=== PATIENT | male | born 1970 | race Caucasian/White ===

== ENCOUNTER 2025-05-12 00:16 | Day surgery (SDC) | payer MEDICARE, MEDICAID, SELFPAY ==
[2025-05-01 13:43] VITALS: BMI 28.6
--- NOTE | 2025-05-05 12:11 | SUR.PREOP ---
[facility] has started construction of its new state of the art ER which will open Spring 2026. With this, we anticipate parking may be a challenge for some our surgical patients and families. Parking spaces are limited but are available for all Surgical, obstetrics, and ER patients sharing this lot. If you arrive and find you are having a hard time finding a parking space, please note that we understand the challenges, please drive around the hospital and park near Hospital Entrance 1. When you enter this entrance, you can ask a volunteer to direct or take you back to the surgical waiting area to check in. We appreciate everyone?s understanding of these expected challenges while we build for your future. Report to the Outpatient Waiting Room, entrance under the green pavilion located off [address], at time __7AM on date _05/12/25_. Planned Procedure Time: __9AM___.? Time changes happen often and if your time is changed the preop area will call you the afternoon before. - You and your visitor will be asked to self-screen and do not enter if you have any COVID symptoms. Please call surgeon if you need to reschedule. - A mask is optional within the hospital at this time. Patients may have clear liquids (water, carbonated beverages, clear teas, apple juice) until 3 hours prior to surgery with a maximum of 20 ounces. - No food from midnight until time of surgery and no smoking, or chewing tobacco (or any form of nicotine). No chewing gum, candy or mints. Take only the following medications with a SIP of water on the morning of surgery: _bupropion, duloxetine, gabapentin, and (albuterol if needed) DO NOT STOP ANY OF YOUR OTHER PRESCRIPTION MEDICATIONS PRIOR TO SURGERY EXCEPT THE FOLLOWING Hold all vitamins and supplements for 3 days per anesthesiologist. Medications to discontinue per physician ___None___ Date to take last dose____N/a Please no make-up, nail bengali, hairspray, perfume, deodorant, or body powder the day of surgery.? No jewelry (including any body piercings) or valuables the day of surgery, leave them at home.? Please take a shower or bath the night before, or the morning of, surgery with an antibacterial soap.? Wear comfortable, loose fitting clothing.? - Jewelry must be removed prior to entering the operating room.? Rings and piercings that are not removed may be cut off. - The hospital will not accept responsibility for valuables.? - Please leave all valuables, including medications, at home the day of surgery. If you are going home after surgery, a licensed newspaper delivery driver must drive you home.? - NO public transportation without another adult if you receive anesthesia. - We recommend that an adult stay with you for 24 hours following discharge. - We also recommend that you do not drive, make important decision, drink alcoholic beverages, or take any drugs that were not prescribed by your health care provider for at least 24 hours after your discharge time. For Pediatric surgeries, we recommend two adults accompany the child home. Follow any additional instructions given to you from your surgeon. Telephone instructions given to __Samir__and asked if any additional questions and then verbalized understanding. Patient advised to call surgeon office or pre surgery nurse liaison [phone] if any additional questions.
--- NOTE | 2025-05-12 07:08 | PM.IMHP ---
H&P: HPI History of Present Illness Date/Time: 05/12/25 07:08 Chief Complaint: chronic sinusitis, poor scar healing on face Narrative: Pt has chronic left sinusitis, deviated septum and abnrmal healing of scar from epidermoid cyst Review of Systems Review of Systems: All systems reviewed & are unremarkable except as noted in HPI and below PMFSH Social History Social History Years smoked: 40 Smoking status: Former smoker Substance use: current Substance use type: marijuana Other substance usage details: daily smoke and gummies Living arrangements: with family Spiritual care concerns: No Meds Home Medications and Allergies Home Medications ?Medication ?Instructions ?Recorded ?Confirmed ?Type albuterol sulfate 90 mcg/actuation 4 inh inhalation Q4-6H PRN wheezing 05/01/25 05/01/25 History aerosol inhaler bupropion HCl 150 mg 24 hr tablet, 450 mg PO DAILY 05/01/25 05/01/25 History extended release dapagliflozin propanediol 10 mg 10 mg PO DAILY 05/01/25 05/01/25 History tablet (Farxiga) duloxetine 30 mg capsule,delayed 30 mg PO DAILY 05/01/25 05/01/25 History release fluticasone furoate 100 1 inh inhalation DAILY 05/01/25 05/01/25 History mcg-vilanterol 25 mcg/dose inhalation powder (Breo Ellipta) fluticasone propionate 50 2 spray intranasal DAILY 05/01/25 05/01/25 History mcg/actuation nasal spray,suspension furosemide 40 mg tablet 40 mg PO DAILY PRN weight gain 05/01/25 05/01/25 History gabapentin 600 mg tablet 600 mg PO DAILY PRN neuropathy 05/01/25 05/01/25 History sacubitril 24 mg-valsartan 26 mg 1 tablet PO DAILY 05/01/25 05/01/25 History tablet (Entresto) Allergies Allergy/AdvReac Type Severity Reaction Status Date / Time No Known Allergies Allergy Verified 05/01/25 13:35 Exam Narrative: deviated septum, chronic left sinusitis, poor scarring in left nasolabial fold Assessment and Plan Assessment and plan (1) Chronic pansinusitis: Code(s): J32.4 - Chronic pansinusitis Status: Acute Plan Samir is here for septo/turb and left FESS as well as scar revision of left face. r/b/a reviewed, all questions answered and pt understands and agrees to proceed. refer to outpt H&P for further detail.
--- NOTE | 2025-05-12 07:10 | WPDHPUPDATE1 ---
History and Physical Update Update Date/Time: 05/12/25 07:10 History and Physical has been reviewed, including an updated exam of the patient. There are NO changes in the patient's condition. Risks, benefits, and alternatives have been discussed and questions answered. Patient agrees to proceed with procedure.
[2025-05-12 07:30] VITALS: BP 123/89; PULSE 146; RESP 20; TEMP 36.6; O2SAT 99
--- NOTE | 2025-05-12 08:20 | SUR.PREOP ---
Dr Cordova notified of HR in 140s, asymptomatic. Baseline HR per EKG on chart 126bpm. Case needs to be cancelled and reschedule per anesthesiologist and patient should either be seen by filterer today or go to ER. Dr Cordova spoke with patient's filterer, Dr Villatoro, regarding case and Dr Villatoro stated patient could be seen in [facility] office today. Patient is to follow up with Dr. Villatoro TODAY in [facility] office and reschedule surgery for a later date.
== END 2025-05-12 08:28 | disposition home or self-care (01) ==
PROVIDERS: PCP Family Medicine; Visit Provider Otolaryngology
PROC: (CPT 30520; 2025-05-12 09:00)
DX: J32.9 Chronic sinusitis, unspecified (principal); J34.2 Deviated nasal septum; L90.5 Scar conditions and fibrosis of skin; R00.0 Tachycardia, unspecified; Z53.09 Procedure and treatment not carried out because of other contraindication
CPT/HCPCS: 99212; G0463